=== PATIENT | female | born 1980 | race Caucasian/White ===

== ENCOUNTER → 2018-08-19 | Outpatient (CLI) | payer OTHER ==
[~2018-08-19] MED LIST: CENTRUM SILVER1 EAC4 PO; CYCLOBENZAPRINE10 MG PO; HYDROCODON-ACE1 EAC8 PO; HYDROCODONE-AP1 EAC6 PO; PRILOSEC20 MG PO; PROVERA5 MG PO; ULTRAM 50MG TAB50 MG PO; XANAX 0.25 MG0.25 MG PO
== END ==
LOC: CAT 08:00
DX: Z13.6 Encounter for screening for cardiovascular disorders (principal); E78.00 Pure hypercholesterolemia, unspecified

== ENCOUNTER → 2019-11-05 | Outpatient (CLI) | payer BC | LOC: ULTRA 14:20 | DX: M79.605 Pain in left leg (principal); R60.0 Localized edema; M79.89 Other specified soft tissue disorders ==

== ENCOUNTER → 2020-10-19 | Outpatient (CLI) | payer BC | LOC: LAB 13:57 | PROVIDERS: ATTEND Nurse Practitioner | DX: Z20.828 Contact with and (suspected) exposure to other viral communicable diseases (principal) ==